=== PATIENT | male | born 1955 | race Caucasian/White ===

== ENCOUNTER 2022-01-12 01:24 | Day surgery (SDC) | payer OTHER, SELFPAY ==
[2021-12-22 15:15] VITALS: BMI 31.6
--- NOTE | 2022-01-03 10:46 | PC.NURSE ---
Patient called and Informed of the new guidelines regarding screening for covid and illness prior to coming in for procedure and if necessary pt will be rapid swabbed on arrival to Endoscopy. Instructed to call prior to preparation of colonoscopy if having any symptoms or any member of household having a positive test in past 2 weeks. Pt. verbalizes understanding.
[2022-01-12 07:54] VITALS: BP 149/88; PULSE 102; RESP 20; TEMP 36.3; O2SAT 97; BMI 29.1
[2022-01-12] MEDS: LACTATED RINGERS 1,000 ML 150 ML IV CONT (08:05)
--- NOTE | 2022-01-12 08:34 | WPDGICN ---
Assessment and Plan Assessment and plan (1) History of colon polyps: Code(s): Z86.010 - Personal history of colonic polyps Status: Acute Assessment and Plan: Patient has a history of a colon polyp removed from the colon by previous colonoscopy 2013. Plan is for surveillance colonoscopy at this time. Further recommendations will be given after endoscopy. GI Consult Note Consult date/time: 01/12/22 08:34 HPI: Breezy Lau is a 66 year old male Presents for screening colonoscopy. Patient was found is having a colon polyp by previous colonoscopy 2013. He presents today for follow-up colonoscopy. Patient reports that his current weight appetite and bowel movements are normal. He denies abdominal pain. He has had no bleeding. Family history is noncontributory. Review of Systems Review of Systems: All systems reviewed & are unremarkable except as noted in HPI and below PMFSH Social History Social History Smoking status: Former smoker Tobacco type: cigarettes Additional smoking assessment comments: Quit smoking 37 years ago Alcohol intake: current Drinks per week: 5 Alcohol use details: Drinks 4-5 beers daily Substance use: never Substance use type: does not use Living arrangements: alone Spiritual care concerns: No Meds Home Medications and Allergies Home Medications Medication Instructions Recorded Confirmed Type allopurinol 100 mg PO DAILY 12/22/21 12/22/21 History lisinopril 10 mg PO DAILY 12/22/21 12/22/21 History rosuvastatin 10 mg PO DAILY 12/22/21 12/22/21 History sildenafil 25 mg PO DAILY PRN 12/22/21 12/22/21 History venlafaxine [Effexor] 75 mg DAILY 12/22/21 12/22/21 History Allergies Allergy/AdvReac Type Severity Reaction Status Date / Time No Known Allergies Allergy Verified 01/12/22 07:53 Vital Signs Vital Signs - 24 hr 01/12/22 07:54 Temperature 97.3 F L Pulse Rate 102 H Respiratory Rate 20 Blood Pressure 149/88 H Pulse Oximetry 97 Exam Narrative: Physical exam reveals patient to be alert. Vital signs are stable. HEENT exam is unremarkable. Patient is anicteric. Lungs are clear to auscultation and percussion. Heart is without murmur or extra sounds. Abdominal exam bowel sounds are present soft nontender with no organomegaly. Digital external rectal exam is normal.
--- NOTE | 2022-01-12 08:45 | WPDANESEPPF ---
Anes - Initial Pre Proc Eval Procedure: Operation Date: 01/12/22 09:00 Proposed Procedures p Screening Colonoscopy - Breezy Burdick MD Date/Time: 01/12/22 08:45 Surgeon: Breezy Burdick MD Pre Op Diagnosis: history of colon polyps Patient Data Age: 66 Gender: M Height: 1.7 m Weight: 84.3 kg Last Vital Signs Temp 97.3 F L 01/12/22 07:54 Pulse 102 H 01/12/22 07:54 Resp 20 01/12/22 07:54 BP 149/88 H 01/12/22 07:54 Pulse Ox 97 01/12/22 07:54 Allergies Allergy/AdvReac Type Severity Reaction Status Date / Time No Known Allergies Allergy Verified 01/12/22 07:53 Home Medications Medication Instructions Recorded Confirmed Type allopurinol 100 mg PO DAILY 12/22/21 12/22/21 History lisinopril 10 mg PO DAILY 12/22/21 12/22/21 History rosuvastatin 10 mg PO DAILY 12/22/21 12/22/21 History sildenafil 25 mg PO DAILY PRN 12/22/21 12/22/21 History venlafaxine [Effexor] 75 mg DAILY 12/22/21 12/22/21 History Patient hx anesthesia problems: none Family hx anesthesia problems: none Results Review: All pre-operative results and documents have been reviewed as part of the pre-operative evaluation. [facility] Social History Social History Smoking status: Former smoker Tobacco type: cigarettes Additional smoking assessment comments: Quit smoking 37 years ago Alcohol intake: current Drinks per week: 5 Alcohol use details: Drinks 4-5 beers daily Substance use: never Substance use type: does not use Living arrangements: alone Spiritual care concerns: No Anes - Eval Final PreProcedure Day of Procedure 01/12/22 08:45 Patient weight: overweight Heart: regular rate and rhythm Lungs: clear to auscultation Airway: Mallampati scale class II Neurological: alert and oriented Last oral intake: >/= 8 hours ASA classification: II Emergent: no Anesthetic plan: proceed Anesthesia type and monitoring: general GIVS and standard monitoring Results Review: All pre-operative results and documents have been reviewed as part of the pre-operative evaluation. Informed Consent: The patient's anesthetic plan and its attendant risks and benefits were discussed with the patient/family/POA. Questions were solicited and answers provided to the satisfaction of the patient/family/POA.
[2022-01-12 09:47] VITALS: BP 119/72; PULSE 90; RESP 22; O2SAT 98
[2022-01-12 09:57] VITALS: BP 133/89; PULSE 82; RESP 24; O2SAT 95
[2022-01-12 10:07] VITALS: BP 147/80; PULSE 84; RESP 21; O2SAT 95
== END 2022-01-12 10:10 | disposition home or self-care (01) ==
PROVIDERS: PCP Family Medicine; Visit Provider Internal Medicine Gastroenterology
PROC: 0DJD8ZZ Inspection of Lower Intestinal Tract, Via Natural or Artificial Opening Endoscopic (ICD-10-PCS; CPT 45378; principal; 2022-01-12 09:00)
DX: Z12.11 Encounter for screening for malignant neoplasm of colon (principal); D12.5 Benign neoplasm of sigmoid colon; K64.8 Other hemorrhoids; Z87.891 Personal history of nicotine dependence
CPT/HCPCS: 45385; 88305; J2704; J7120